=== PATIENT | female | born 1975 | race African-American/Black ===

== ENCOUNTER 2018-11-25 04:25 | Emergency (ER) | payer BC ==
[~2018-11-25] VITALS: Ht 160 cm; Wt 70.3 kg
[2018-11-25 04:57] LABS: BILIRUBIN,URINE NEGATIVE (NEG); CLARITY,URINE TURBID; COLOR,URINE YELLOW; NITRITE,URINE NEGATIVE (NEG); PH,URINE 7.5; PROTEIN,URINE NEGATIVE (NEG-TRACE); UROBILINOGEN,URINE 0.2 mg/dL (0.2 mg/dL)
[2018-11-25 04:58] LABS: BASO % 0 % (0-3); EOS # 0.2 x10^3/uL (0.0-0.7); EOS % 2 % (0-3); HEMATOCRIT 40.4 % (36.0-47.0); HEMOGLOBIN 13.8 g/dL (12.0-15.5); LYMPH # 2.7 x10^3/uL (1.0-4.8); LYMPH % 27 % (24-48); MEAN CORPUSCULAR HEMOGLOBIN 31 pg (25-35); MEAN CORPUSCULAR HGB CONC 34 g/dL (31-37); MEAN CORPUSCULAR VOLUME 90 fL (79-100); MONO # 0.6 x10^3/uL (0.0-1.1); MONO % 6 % (0-9); NEUT # 6.5 x10^3/uL (1.8-7.7); NEUT % 65 % (31-73); PLATELET COUNT 287 x10^3/uL (140-400); RED BLOOD COUNT 4.47 x10^6/uL (3.50-5.40); RED CELL DISTRIBUTION WIDTH 14.1 % (11.5-14.5); WHITE BLOOD COUNT 10.1 x10^3/uL (4.0-11.0)
[2018-11-25 05:02] LABS: BACTERIA,URINE FEW /HPF (0-FEW); RBC,URINE 0 /HPF (0-2)
[2018-11-25 05:03] LABS: AMORPHOUS SEDIMENT,UR PRESENT /HPF; SQUAMOUS EPITHELIAL CELL,UR OCC /LPF
[2018-11-25 05:06] LABS: CALCIUM 8.5 mg/dL (8.5-10.1); CREATININE 0.9 mg/dL (0.6-1.0); GFR 82.3; POTASSIUM 3.7 mmol/L (3.5-5.1)
[2018-11-25 05:12] LABS: ALBUMIN 3.5 g/dL (3.4-5.0); ALBUMIN/GLOBULIN RATIO 0.8 (1.0-1.7); TOTAL BILIRUBIN 0.5 mg/dL (0.2-1.0); TOTAL PROTEIN 7.7 g/dL (6.4-8.2)
[2018-11-25] MEDS ORDERED: IV NORMAL SALINE 1000ML BAG 1,000 ML IV ONE (05:15)
[2018-11-25] MEDS ORDERED: FAMOTIDINE 20 MG/2 ML VIAL IVP ONE (05:15)
[2018-11-25] MEDS ORDERED: ONDANSETRON PF 4 MG/2 ML VIAL. IV ONE (05:15)
[2018-11-25] MEDS ORDERED: fentaNYL PF VIAL 100 MCG/2 ML VIAL IV ONE (05:30)
--- NOTE | 2018-11-25 05:38 | PHYS DOC ---
Past Medical History Past Medical History: Ectopic , Hypertension, Kidney Stone (JAELYN HOGAN DO) Past Surgical History: Cholecystectomy, Tubal ligation (JAELYN HOGAN DO) Smoking: Cigarettes Alcohol Use: Occasionally Drug Use: None (JAELYN HOGAN DO) Adult General Chief Complaint Chief Complaint: ABDOMINAL PAIN HPI HPI Patient is a 43yo AAF w/ PMH significant for ectopic , cholecystectomy, and HTN presents w/ RLQ pain. The pain has been intermittent, sharp and crampy, 10/10, for the past 2wk. She has experienced intermittent spotting bleeding 2wk ago that she believes was due to discontinuing OCPs for 2-3 days before restarting; upon restarting OCPs she experienced regular menstrual flow of 6-7 days but has continued to experience intermittent spotting that has decreased in amount each day since. Denies vaginal discharge or pruritus. Denies fever/chills. Denies diarrhea. Reports nausea and vomiting x 1 episode. (JAELYN HOGAN DO) Review of Systems Review of Systems Constitutional: Denies fever or chills [] Eyes: Denies change in visual acuity, redness, or eye pain [] HENT: Denies nasal congestion or sore throat [] Respiratory: Denies cough, shortness of breath, or wheezing [] Cardiovascular: Denies chest pain or palpitations [] GI: Denies constipation, diarrhea, or hematochezia. Reports RLQ abdominal pain, nausea and 1x episode of vomiting. [] : Denies dysuria, hematuria, or increase in frequency [] Musculoskeletal: Denies new or worsening joint or back pain [] Neurologic: Denies headache, focal weakness or sensory changes [] Complete systems were reviewed and found to be within normal limits, except as documented in this note. (JAELYN HOGAN DO) Current Medications Current Medications Current Medications Medications (Trade) Dose Ordered Sig/Jean Start Time Stop Time Status Last Admin Dose Admin Ceftriaxone Sodium (Rocephin) 1 gm 1X ONCE 11/25/18 06:30 11/25/18 06:31 DC 11/25/18 06:21 1 GM Famotidine (Pepcid Vial) 20 mg 1X ONCE 11/25/18 05:15 11/25/18 05:16 DC 11/25/18 05:11 20 MG Fentanyl Citrate (Fentanyl 2ml Vial) 50 mcg 1X ONCE 11/25/18 05:30 11/25/18 05:31 DC 11/25/18 05:21 50 MCG Info (CONTRAST GIVEN -- Rx MONITORING) 1 each PRN DAILY PRN 11/25/18 07:30 11/27/18 07:29 Iohexol (Omnipaque 300 Mg/ml) 75 ml 1X ONCE 11/25/18 07:15 11/25/18 07:16 DC Morphine Sulfate (Morphine Sulfate) 4 mg 1X ONCE 11/25/18 07:00 11/25/18 07:01 DC 11/25/18 06:33 4 MG Ondansetron HCl (Zofran) 4 mg 1X ONCE 11/25/18 05:15 11/25/18 05:16 DC 11/25/18 05:11 4 MG Sodium Chloride 1,000 ml @ 1,000 mls/hr 1X ONCE 11/25/18 05:15 11/25/18 06:14 DC 11/25/18 05:11 1,000 MLS/HR (EMRE FLORES DO) Allergies Allergies Allergies Coded Allergies Type Severity Reaction Last Updated Verified Penicillins Allergy Intermediate 11/25/18 Yes (EMRE FLORES DO) Physical Exam Physical Exam Constitutional: mild acute distress, non-toxic appearance, conversational HENT: Normocephalic, atraumatic, oropharynx moist Eyes: PERRL, conjunctiva normal, no discharge Neck: Normal range of motion, no tenderness Cardiovascular: heart regular rate and rhythm w/o gallops, rubs, or murmurs; UE radial b/l pulses intact 2/4 Lungs & Thorax: Bilateral breath sounds clear to auscultation, no wheezing Abdomen: soft, non-distended, no ecchymosis; reports tenderness to RLQ palpation Skin: Warm, dry, no erythema Extremities: No tenderness, no edema Neurologic: Alert and oriented X 3, normal motor function, normal sensory function, no focal deficits noted Psychologic: Affect normal, judgement normal, mood normal (JAELYN HOGAN DO) Current Patient Data Vital Signs Vital Signs Date Time Temp Pulse Resp B/P (MAP) Pulse Ox O2 Delivery O2 Flow Rate FiO2 11/25/18 06:33 20 100 Room Air 11/25/18 05:38 76 173/101 (125) 11/25/18 04:45 98.2 98.2 (EMRE FLORES DO) Lab Values Laboratory Tests Test 11/25/18 04:30 11/25/18 04:37 11/25/18 04:50 Urine Collection Type Unknown Urine Color Yellow Urine Clarity Turbid Urine pH 7.5 Urine Specific [place] 1.015 Urine Protein Negative mg/dL (NEG-TRACE) Urine Glucose (UA) Negative mg/dL (NEG) Urine Ketones (Stick) Negative mg/dL (NEG) Urine Blood Negative (NEG) Urine Nitrite Negative (NEG) Urine Bilirubin Negative (NEG) Urine Urobilinogen Dipstick 0.2 mg/dL (0.2 mg/dL) Urine Leukocyte Esterase Moderate (NEG) Urine RBC 0 /HPF (0-2) Urine WBC 5-10 /HPF (0-4) Urine Squamous Epithelial Cells Occ /LPF Urine Amorphous Sediment Present /HPF Urine Bacteria Few /HPF (0-FEW) POC Urine HCG, Qualitative Hcg negative (Negative) White Blood Count 10.1 x10^3/uL (4.0-11.0) Red Blood Count 4.47 x10^6/uL (3.50-5.40) Hemoglobin 13.8 g/dL (12.0-15.5) Hematocrit 40.4 % (36.0-47.0) Mean Corpuscular Volume 90 fL (79-100) Mean Corpuscular Hemoglobin 31 pg (25-35) Mean Corpuscular Hemoglobin Concent 34 g/dL (31-37) Red Cell Distribution Width 14.1 % (11.5-14.5) Platelet Count 287 x10^3/uL (140-400) Neutrophils (%) (Auto) 65 % (31-73) Lymphocytes (%) (Auto) 27 % (24-48) Monocytes (%) (Auto) 6 % (0-9) Eosinophils (%) (Auto) 2 % (0-3) Basophils (%) (Auto) 0 % (0-3) Neutrophils # (Auto) 6.5 x10^3/uL (1.8-7.7) Lymphocytes # (Auto) 2.7 x10^3/uL (1.0-4.8) Monocytes # (Auto) 0.6 x10^3/uL (0.0-1.1) Eosinophils # (Auto) 0.2 x10^3/uL (0.0-0.7) Basophils # (Auto) 0.0 x10^3/uL (0.0-0.2) Sodium Level 140 mmol/L (136-145) Potassium Level 3.7 mmol/L (3.5-5.1) Chloride Level 105 mmol/L (98-107) Carbon Dioxide Level 24 mmol/L (21-32) Anion Gap 11 (6-14) Blood Urea Nitrogen 24 mg/dL (7-20) H Creatinine 0.9 mg/dL (0.6-1.0) Estimated GFR (Cockcroft-Gault) 82.3 BUN/Creatinine Ratio 27 (6-20) H Glucose Level 109 mg/dL (70-99) H Calcium Level 8.5 mg/dL (8.5-10.1) Magnesium Level 2.0 mg/dL (1.8-2.4) Total Bilirubin 0.5 mg/dL (0.2-1.0) Aspartate Amino Transferase (AST) 13 U/L (15-37) L Alanine Aminotransferase (ALT) 20 U/L (14-59) Alkaline Phosphatase 98 U/L (46-116) Total Protein 7.7 g/dL (6.4-8.2) Albumin 3.5 g/dL (3.4-5.0) Albumin/Globulin Ratio 0.8 (1.0-1.7) L Lipase 173 U/L (73-393) Laboratory Tests 11/25/18 04:50 Laboratory Tests 11/25/18 04:50 Microbiology 11/25/18 Wet Prep - Final, Complete (EMRE FLORES DO) EKG EKG [] (JAELYN HOGAN DO) Radiology/Procedures Radiology/Procedures [] (JAELYN HOGAN DO) Radiology/Procedures Pelvic Ultrasound IMPRESSION: 1. Small left uterine fibroid. 2. Normal blood flow in the ovaries. (EMRE FLORES DO) Course & Med Decision Making Course & Med Decision Making Pertinent Lab studies reviewed. (See chart for details) Patient is a 43yo AAF with PMH significant for ectopic tubal , HTN, cholecystectomy presents w/ RLQ pain and vaginal spotting. Negative urine . UA w/ signs of possible UTI and empiric antibiotics initiated. U/S pending. Labs also pending. Sign-out given to Dr. Flores for further evaluation and final disposition. Discussed current findings and plan with patient and family, who acknowledge understanding and agreement. (JAELYN HOGAN DO) Course & Med Decision Making DEMETRICE from Dr. Hogan at approximately 06 100. Pelvic completed with normal external genitalia, normal cervix, no cervical motion tenderness, no vaginal discharge, no adnexal masses and no adnexal tenderness. Patient was reporting some continued pain and vomiting was given morphine for pain. I advised need for CT as patient had no obvious pathology on current imaging. Patient was agree able at that time. Patient now requesting discharge. Patient states that her pain is gone. Patient stating "I just feel gassy". She is declining the CAT scan. She does not have a white count. Her urine sample was contaminated and she is not having any dysuria so I will hold on antibiotics at this time. Advised of urine culture pending. ER return precautions given. Patient verbalized understanding. All questions answered. (EMRE FLORES DO) Dragon Disclaimer Dragon Disclaimer This electronic medical record was generated, in whole or in part, using a voice recognition dictation system. (JAELYN HOGAN DO) Departure Departure Impression: Primary Impression: Pelvic pain Disposition: HOME, SELF-CARE Condition: IMPROVED Referrals: FERNANDO MONROY MD (PCP) Patient Instructions: Abdominal Pain, Pelvic Pain, Female, [id number] Additional Instructions: Thank you for coming to [facility]. Please read the attached handouts. Please follow-up with your primary care physician. Return to the ER if your symptoms worsen or you have any other concerns. JAELYN HOGAN DO Nov 25, 2018 05:38 EMRE FLORES DO Nov 25, 2018 07:29
[2018-11-25] MEDS ORDERED: cefTRIAXone IV Push 1 GM VIAL. IVP ONE (06:30)
--- NOTE | 2018-11-25 06:46 | RAD ---
[facility] W/TV Clinical Indication: Right adnexal pain. Comparison: None. TECHNIQUE: Real-time ultrasound imaging of the pelvis using transabdominal and transvaginal window is performed. Findings: Uterus measures 7 x 3.8 x 3.7 cm. Uterus is anteverted. In the myometrium on the left there is a round heterogeneous mass measuring up to 1.2 cm that is probably a fibroid. The endometrial stripe is normal measuring 4 mm. There is normal blood flow in the ovaries. The ovaries are symmetric in size. No pelvic free fluid. No evidence of adnexal mass. IMPRESSION: 1. Small left uterine fibroid. 2. Normal blood flow in the ovaries. Electronically signed by: Luis Enrique Junior MD (11/25/2018 6:44 AM) [id number]
[2018-11-25] MEDS ORDERED: MORPHINE SULFATE 4 MG/ML VIAL. IV ONE (07:00)
[2018-11-25 07:08] VITALS: BP 157/101
[2018-11-25] MEDS ORDERED: IOHEXOL 300 MG/ML 100ML VIAL. IV ONE (07:15)
[2018-11-25] MEDS ORDERED: CONTRAST GIVEN. MC PRN (07:30)
[2018-11-26 17:09] LABS: GC PROBE Negative (Negative)
== END 2018-11-25 07:38 | disposition home or self-care (01) ==
LOC: ER 04:25
DX: R10.2 Pelvic and perineal pain (principal); R11.2 Nausea with vomiting, unspecified; I10 Essential (primary) hypertension; F17.210 Nicotine dependence, cigarettes, uncomplicated; Z87.442 Personal history of urinary calculi; Z90.49 Acquired absence of other specified parts of digestive tract; Z98.51 Tubal ligation status; Z88.0 Allergy status to penicillin
CPT/HCPCS: 36415; 76830; 76856; 80053; 81001; 81025; 83690; 83735; 85025; 87086; 87491; 87591; 96361; 96374; 96375; 99285; J0696; J2270; J2405; J3010; J3490; J7030; Q0111; 87186